=== PATIENT | female | born 1965 | race Caucasian/White ===

== ENCOUNTER 2018-03-12 15:35 | Outpatient (CLI) | payer BC | END 2018-03-12 15:36 | disposition home or self-care (01) | LOC: BICMAMMO 15:35 | PROVIDERS: ATTEND Internal Medicine | DX: Z12.31 Encounter for screening mammogram for malignant neoplasm of breast (principal); R92.1 Mammographic calcification found on diagnostic imaging of breast | CPT/HCPCS: 77063; 77067 ==

== ENCOUNTER 2018-03-25 13:34 | Outpatient (CLI) | payer BC | END 2018-03-25 13:35 | disposition home or self-care (01) | LOC: BICMAMMO 13:34 | PROVIDERS: ATTEND Internal Medicine | DX: Z13.820 Encounter for screening for osteoporosis (principal); Z78.0 Asymptomatic menopausal state; M19.90 Unspecified osteoarthritis, unspecified site | CPT/HCPCS: 77080 ==

== ENCOUNTER 2018-04-06 16:48 | Outpatient (CLI) | payer BC | END 2018-04-06 16:49 | disposition home or self-care (01) | LOC: BICRAD 16:48 | PROVIDERS: ATTEND Internal Medicine | DX: S99.921A Unspecified injury of right foot, initial encounter (principal); S92.511A Displaced fracture of proximal phalanx of right lesser toe(s), initial encounter for closed fracture ==

== ENCOUNTER 2018-05-20 07:33 | Outpatient (CLI) | payer BC | END 2018-05-20 07:34 | disposition home or self-care (01) | LOC: BICULT 07:33 | PROVIDERS: ATTEND Internal Medicine Hematology & Oncology | DX: E83.110 Hereditary hemochromatosis (principal); R16.0 Hepatomegaly, not elsewhere classified; N13.30 Unspecified hydronephrosis; K76.89 Other specified diseases of liver | CPT/HCPCS: 76700 ==

== ENCOUNTER 2018-07-04 11:57 | Emergency (ER) | payer BC ==
[2018-07-04 12:26] LABS: #Basophils 0.1 thou/uL (0.0-0.2); #Eosinphils 0.4 thou/uL (0.0-0.7); #Lymphocytes 1.4 thou/uL (1.20-3.40); #Monocytes 0.7 thou/uL (0.11-0.59); %Basophils 1.7 % (0.0-1.0); %Eosinophils 5.6 % (0.0-10.0); %Lymphocytes 18.7 % (21.0-51.0); %Monocytes 8.5 % (0.0-10.0); %Neutrophils 65.5 % (42.0-75.0); Hemoglobin 13.6 g/dL (12.0-16.0); Mean Corpuscular HGB CONC 33.9 g/dL (32.0-36.0); Mean Corpuscular Hemoglobin 31.1 pg (27.0-31.0); Mean Corpuscular Volume 91.6 fL (78.0-98.0); Mean Platelet Volume 7.8 fL (7.4-10.4); Platelet Count 254 thou/uL (130-400); RBC Distribution Width 11.4 % (11.5-14.5); Red Blood Cell (RBC) Count 4.39 mill/uL (4.20-5.40); White Blood Cell (WBC) Count 7.7 thou/uL (4.8-10.8)
[2018-07-04 12:46] LABS: ALT (SGPT) 15 U/L (8-55); AST (SGOT) 26 U/L (5-34); Albumin 4.5 g/dL (3.5-5.0); Alkaline Phosphatase 48 U/L (40-150); Anion Gap 14 mmol/L (10-20); BUN (Urea Nitrogen) 14 mg/dL (9.8-20.1); Bilirubin, Total 0.3 mg/dL (0.2-1.2); CK (CPK) 188 U/L (29-168); Calc. Creatinine Clearance 0 mL/min (70-130); Calcium 9.6 mg/dL (7.8-10.44); Carbon Dioxide 23 mmol/L (22-29); Chloride 105 mmol/L (98-107); Estimated GFR-MDRD 69; Globulin 3.1 g/dL (2.4-3.5); Glucose 87 mg/dL (70-105); Potassium 4.2 mmol/L (3.5-5.1); Protein, Total 7.6 g/dL (6.0-8.3); Sodium 138 mmol/L (136-145)
[2018-07-04 12:50] LABS: CKMB 2.2 ng/mL (0-6.6); Troponin I Less than 0.010 ng/mL (< 0.028)
== END 2018-07-04 13:00 | disposition home or self-care (01) ==
LOC: ERS 11:57
DX: R07.9 Chest pain, unspecified (principal); J45.909 Unspecified asthma, uncomplicated; I49.3 Ventricular premature depolarization; Z79.899 Other long term (current) drug therapy
CPT/HCPCS: 80053; 82553; 84484; 85025; 85379; 93005

== ENCOUNTER 2018-07-09 12:28 | Outpatient (CLI) | payer BC ==
--- NOTE | 2018-07-09 15:45 | NM ---
DIURETIC RADIONUCLIDE RENOGRAM: 07/09/18 HISTORY: Unspecified hydronephrosis. RADIOPHARMACEUTICAL: 7.8 millicuries technetium 99m-MAG3 injected intravenously. DIURETIC: 25.6 millicuries IV Lasix administered 5 minutes prior to the radiopharmaceutical. FINDINGS: There is good symmetric blood flow to the kidneys with normal tracer uptake and excretion on both deb es. The renogram curves are downsloping bilaterally. The differential function measures 47% on the ri ght and 53% on the left. The excretion halftime measures 6.5 minutes on the right and 5 minutes on th e left. The exam was performed with the Ayala catheter in place. There is tracer material in the ureters and the urinary bladder. IMPRESSION: No evidence of high grade obstruction. POS: C
== END 2018-07-09 12:29 | disposition home or self-care (01) ==
LOC: NM 12:28
PROVIDERS: ATTEND Urology
DX: N13.30 Unspecified hydronephrosis (principal)
CPT/HCPCS: 78708; A4641; A9562

== ENCOUNTER 2018-11-25 14:21 | Outpatient (CLI) | payer BC ==
--- NOTE | 2018-11-25 16:06 | ULT ---
RIGHT BREAST ULTRASOUND: Date: 11/25/18 HISTORY: Right breast pain. FINDINGS: Sonographic evaluation of the region of pain in the 7, 8, and 9 o'clock positions demonstrates no abn ormality. Correlation is made with the mammogram from same date. IMPRESSION: BIRADS Category 2 - Benign findings. Return to annual mammographic screening. POS: OFF
== END 2018-11-25 14:22 | disposition home or self-care (01) ==
LOC: BICMAMMO 14:21
PROVIDERS: ATTEND Internal Medicine
DX: N64.4 Mastodynia (principal)
CPT/HCPCS: G0279

== ENCOUNTER 2019-03-15 11:33 | Outpatient (CLI) | payer BC ==
--- NOTE | 2019-03-15 13:10 | MMO ---
Bilateral MAMMO Bilat Screen [facility]. CLINICAL HISTORY: Patient is 53 years old and is seen for screening. The patient has no family history of breast cancer. The patient has no personal history of cancer. VIEWS: The views performed were: bilateral craniocaudal with tomosynthesis and bilateral mediolateral oblique with tomosynthesis. FILMS COMPARED: The present examination has been compared to [place] [facility] [place] 12/[place], 03/12/2018 and 11/25/2018. MAMMOGRAM FINDINGS: The breasts are extremely dense, which may lower the sensitivity of mammography. There are stable benign appearing calcifications seen in both breasts. There are no suspicious masses, suspicious calcifications, or new areas of architectural distortion. IMPRESSION: THERE IS NO MAMMOGRAPHIC EVIDENCE OF MALIGNANCY. A ROUTINE FOLLOW-UP MAMMOGRAM IN 1 YEAR IS RECOMMENDED. THE RESULTS OF THIS EXAM WERE SENT TO THE PATIENT. ACR BI-RADS Category 2 - Benign finding MAMMOGRAPHY NOTE: 1. A negative mammogram report should not delay a biopsy if a dominant of clinically suspicious mass is present. 2. Approximately 10% to 15% of breast cancers are not detected by mammography. 3. Adenosis and dense breasts may obscure an underlying neoplasm.
== END 2019-03-15 11:34 | disposition home or self-care (01) ==
LOC: BICMAMMO 11:33
PROVIDERS: ATTEND Internal Medicine
DX: Z12.31 Encounter for screening mammogram for malignant neoplasm of breast (principal)
CPT/HCPCS: 77063; 77067

== ENCOUNTER 2019-12-19 12:35 | Outpatient (CLI) | payer BC ==
--- NOTE | 2019-12-19 13:14 | RAD ---
EXAM: Sinus series HISTORY: Congestion COMPARISON: None FINDINGS: No displaced calvarial fracture is seen. The visualized paranasal sinuses are well aerate d without opacification. IMPRESSION: No significant sinus abnormality.
--- NOTE | 2019-12-19 13:14 | RAD ---
EXAM: Chest 2 views: HISTORY: Bronchitis; flu 2 weeks ago COMPARISON: None. FINDINGS: There is a normal-sized cardiomediastinal silhouette. There is no evidence of consolidation, mass, or pleural effusion. The bones are unremarkable. IMPRESSION: No evidence of acute cardiopulmonary disease
== END 2019-12-19 12:36 | disposition home or self-care (01) ==
LOC: BICRAD 12:35
PROVIDERS: ATTEND Internal Medicine
DX: J40 Bronchitis, not specified as acute or chronic (principal); J32.9 Chronic sinusitis, unspecified
CPT/HCPCS: 70220; 71046; 81003; 87081; 87086; 87430; 87804

== ENCOUNTER 2020-03-29 08:12 | Outpatient (CLI) | payer BC ==
--- NOTE | 2020-03-29 10:37 | MMO ---
Bilateral MAMMO Bilat Screen [facility]. CLINICAL HISTORY: Patient is 54 years old and is seen for screening. The patient has the following family history of breast cancer: mother, malignant (generic). The patient has no personal history of cancer. VIEWS: The views performed were: bilateral craniocaudal with tomosynthesis and bilateral mediolateral oblique with tomosynthesis. FILMS COMPARED: The present examination has been compared to prior imaging studies performed at [facility] on 12/30/2016, 03/12/2018, 11/25/2018 and 03/15/2019. This study has been interpreted with the assistance of computer-aided detection. MAMMOGRAM FINDINGS: The breasts are extremely dense, which may lower the sensitivity of mammography. Benign calcifications are noted bilaterally. There are no suspicious masses, suspicious calcifications, or new areas of architectural distortion. IMPRESSION: THERE IS NO MAMMOGRAPHIC EVIDENCE OF MALIGNANCY. A ROUTINE FOLLOW-UP MAMMOGRAM IN 1 YEAR IS RECOMMENDED. THE RESULTS OF THIS EXAM WERE SENT TO THE PATIENT. ACR BI-RADS Category 2 - Benign finding MAMMOGRAPHY NOTE: 1. A negative mammogram report should not delay a biopsy if a dominant of clinically suspicious mass is present. 2. Approximately 10% to 15% of breast cancers are not detected by mammography. 3. Adenosis and dense breasts may obscure an underlying neoplasm. Reported by: HASEEB BAUTISTA MD Electonically Signed: [id number]
== END 2020-03-29 08:13 | disposition home or self-care (01) ==
LOC: BICMAMMO 08:12
PROVIDERS: ATTEND Internal Medicine
DX: Z12.31 Encounter for screening mammogram for malignant neoplasm of breast (principal); Z80.3 Family history of malignant neoplasm of breast
CPT/HCPCS: 77063; 77067

== ENCOUNTER 2020-07-26 07:41 | Outpatient (CLI) | payer BC ==
--- NOTE | 2020-07-26 09:53 | CT ---
CT OF THE ABDOMEN AND PELVIS WITH IV CONTRAST: Date: 07/26/2020 INDICATION: History of hemochromatosis and left-sided abdominal pain. COMPARISON: Prior CT of the abdomen with and without contrast dated 08/07/2010. FINDINGS: There is a nodular opacity with surrounding ground-glass opacity in the posterior right lower lobe armstrong spicious for a rounded pneumonia. Hepatic cysts are similar appearing. The spleen is normal in size. The pancreas and adrenal glands are normal appearing. Chronic right UPJ obstruction is stable. Left k idney is normal. There is a mild amount of retained stool within the colon. The small bowel is of normal caliber. The appendix is normal. Reproductive structures, bladder, rectum, and perirectal soft tissues appear with in normal limits by CT. There is mild scattered degenerative and osteoarthritic change. IMPRESSION: 1. Dense nodular opacity in the posterior right lower lobe with surrounding ground-glass opacity is suspicious for round pneumonia. Recommend appropriate therapy and follow-up CT imaging in 6-8 weeks t o document resolution, as malingnacy is not totally excluded. 2. Stable hepatic cysts. 3. Chronic mild UPJ obstruction. 4. Mild amount of retained stool within the colon. POS: BH
== END 2020-07-26 07:42 | disposition home or self-care (01) ==
LOC: BICCT 07:41
PROVIDERS: ATTEND Internal Medicine Gastroenterology
DX: R10.84 Generalized abdominal pain (principal); K76.89 Other specified diseases of liver; R91.8 Other nonspecific abnormal finding of lung field; N13.5 Crossing vessel and stricture of ureter without hydronephrosis
CPT/HCPCS: 74177

== ENCOUNTER 2020-08-15 07:47 | Outpatient (CLI) | payer BC ==
--- NOTE | 2020-08-15 10:35 | CT ---
Ct of chest performed with intravenous contrast enhancement: HISTORY: Followup of abnormal opacity within the right base noted on recent CT of the abdomen. COMPARISON: A 07/26/2020 CT abdomen and pelvis. FINDINGS: There is an area of nodular ground-glass opacity measuring 6 mm in size within the left lower lobe ax ial image 63. Unfortunately, the previous CT of the abdomen does not extend to this area. I am not certain whether this is a focus of pneumonitis or a true small pulmonary nodule. It will require fol lowup. The nodular mass-like infiltrate in the right base has essentially resolved with some very minimal re sidual ground-glass opacity. Small mediastinal nodes are not significantly enlarged. No significant hilar adenopathy. No signifi cant axillary adenopathy. Hepatic cysts are identified. IMPRESSION: 1. Central complete resolution of the nodular right lower lobe infiltrate. 2. A 6 mm nodular ground-glass opacity within the left lower lobe. This was not seen on the prior e xamination as it is higher in position than the images obtained on the previous study and will requir e followup. It could represent a focus of pneumonitis, but a mass is not excluded as a possibility. I would recommend a short-term 3-month followup noncontrast CT for assessment. POS: [facility]
== END 2020-08-15 07:48 | disposition home or self-care (01) ==
LOC: BICCT 07:47
PROVIDERS: ATTEND Internal Medicine Gastroenterology
DX: R91.8 Other nonspecific abnormal finding of lung field (principal)
CPT/HCPCS: 71260

== ENCOUNTER 2020-12-19 09:50 | Outpatient (CLI) | payer BC ==
--- NOTE | 2020-12-19 11:12 | MMO ---
Left Breast MAMMO Unilat Diag [facility]. CLINICAL HISTORY: Patient is 55 years old and is seen for diagnostic exam and palpable abnormality in the left breast. The patient has the following family history of breast cancer: mother, malignant (generic). The patient has no personal history of cancer. VIEWS: The views performed were: left craniocaudal with tomosynthesis; left mediolateral oblique with tomosynthesis; left mediolateral with tomosynthesis; and left exaggerated craniocaudal with tomosynthesis. FILMS COMPARED: The present examination has been compared to prior imaging studies performed at [facility] on 11/25/2018, 03/15/2019, 03/29/2020 and 12/19/2020. This study has been interpreted with the assistance of computer-aided detection. MAMMOGRAM FINDINGS: The breast is extremely dense, which may lower the sensitivity of mammography. No mammographic or sonograhic abnormality is seen at the site of palpable concern in the 4:00 left breast. There has been interval increase in number of tiny calcs in the left upper slightly inner left breast. IMPRESSION: FINDING IN THE LEFT BREAST IS SUSPICIOUS. NEEDLE LOCALIZATION AND BIOPSY ARE RECOMMENDED. THE RESULTS OF THIS EXAM WERE SENT TO THE PATIENT. ACR BI-RADS Category 4 - Suspicious abnormality - biopsy should be considered D/W pt in person @ [address] Herring over the phone @ 1056 hrs. MAMMOGRAPHY NOTE: 1. A negative mammogram report should not delay a biopsy if a dominant of clinically suspicious mass is present. 2. Approximately 10% to 15% of breast cancers are not detected by mammography. 3. Adenosis and dense breasts may obscure an underlying neoplasm. Reported by: HASEEB BAUTISTA MD Electonically Signed: [id number]
--- NOTE | 2020-12-19 11:20 | ULT ---
LIMITED LEFT BREAST ULTRASOUND: HISTORY: Palpable abnormality at 4 o'clock position of the left breast. FINDINGS: Correlation is made with the mammogram of same date. Sonographic evaluation of the region of palpable concern at the 4 o'clock position of the left breast demonstrates no abnormality. The mammogram demonstrates new tiny calcifications which should be biopsied. IMPRESSION: BIRADS category 4 - suspicious abnormality. Needle localization and biopsy is recommended. Discussed in person with the patient at 10:45 a.m. and over the telephone with Dr. Zeenat Herring at 10:56 a.m. CODE CR POS: OFF
== END 2020-12-19 09:51 | disposition home or self-care (01) ==
LOC: BICMAMMO 09:50
PROVIDERS: ATTEND Internal Medicine
DX: N63.24 Unspecified lump in the left breast, lower inner quadrant (principal)
CPT/HCPCS: G0279

== ENCOUNTER 2021-01-03 13:21 | Outpatient (CLI) | payer BC ==
[2021-01-03 15:11] LABS: #Basophils 0.1 10x3/uL (0.0-0.2); #Eosinphils 0.2 10x3/uL (0.0-0.5); #Monocytes 0.4 10x3/uL (0.0-1.1); #Neutrophils 4.9 10x3/uL (1.5-8.4); %Basophils 1.2 % (0.0-2.0); %Eosinophils 2.6 % (0.0-6.0); %Monocytes 5.6 % (0.0-10.0); %Neutrophils 71.3 % (40.0-75.0); Hemoglobin 13.4 g/dL (12.0-15.5); Mean Corpuscular Hemoglobin 30.7 pg (27.0-33.0); Mean Corpuscular Volume 93.1 fl (81.6-98.3); Mean Platelet Volume 11.2 fl (7.4-10.4); Platelet Count 296 10x3/uL (150-450); RBC Distribution Width 12.7 % (11.5-14.5); Red Blood Cell (RBC) Count 4.36 10x6/uL (3.90-5.03); White Blood Cell (WBC) Count 6.9 10x3/uL (3.5-10.5)
[2021-01-03 15:29] LABS: Anion Gap 13 mmol/L (10-20); BUN (Urea Nitrogen) 14 mg/dL (9.8-20.1); Calc. Creatinine Clearance 0 mL/min (70-130); Calcium 9.8 mg/dL (7.8-10.44); Carbon Dioxide 28 mmol/L (22-29); Chloride 104 mmol/L (98-107); Glucose 93 mg/dL (70-105); Potassium 4.7 mmol/L (3.5-5.1); Sodium 140 mmol/L (136-145)
[2021-01-04 04:32] LABS: SARS-CoV-2 PCR by NAA Not Detected (NotDetected)
== END 2021-01-03 13:22 | disposition home or self-care (01) ==
LOC: LABBT 13:21
PROVIDERS: ATTEND Specialist
DX: Z01.818 Encounter for other preprocedural examination (principal); Z01.812 Encounter for preprocedural laboratory examination; R92.1 Mammographic calcification found on diagnostic imaging of breast; Z20.822 Contact with and (suspected) exposure to COVID-19
CPT/HCPCS: 80048; 85025; 87635; 93005; 93010; U0003; U0005

== ENCOUNTER 2021-01-08 08:37 | Day surgery (SDC) | payer BC ==
[2021-01-07 10:56] VITALS: BMI 17.2
[2021-01-08] MEDS ORDERED: Lidocaine 1% w/Epinephrine 1:100K 20 ML VIAL ONE (09:24)
[2021-01-08] MEDS ORDERED: Bupivacaine 0.25% HCL 30 ML VIAL ONE (09:24)
[2021-01-08] MEDS ORDERED: Acetaminophen 500 MG TAB ONE (09:27)
[2021-01-08] MEDS ORDERED: Ketorolac Tromethamine 30 MG/ML VIAL ONE (09:27)
[2021-01-08] MEDS ORDERED: Fentanyl 100 MCG/2 ML VIAL ONE (09:39)
[2021-01-08] MEDS ORDERED: Rocuronium Bromide 10 MG/ML (10ML VIAL) ONE (10:01)
[2021-01-08] MEDS ORDERED: Glycopyrrolate 0.2 MG/ML 5 ML SYRINGE ONE (10:01)
[2021-01-08] MEDS ORDERED: Ondansetron PF 4 MG/2 ML Vial ONE (10:01)
[2021-01-08] MEDS ORDERED: ePHEDrine 50 MG/ML VIAL ONE (10:01)
[2021-01-08] MEDS ORDERED: PROPOFOL 200 MG/20 ML VIAL ONE (10:01)
[2021-01-08] MEDS ORDERED: PHENYLEPHRINE-NS 100 MCG/ML 10 ML SYRINGE ONE (10:01)
[2021-01-08] MEDS ORDERED: Lidocaine 1% PF 5 ML VIAL ONE (10:01)
== END 2021-01-08 12:53 | disposition home or self-care (01) ==
LOC: SDC 08:37
PROVIDERS: ATTEND Specialist
PROC: BH01ZZZ Plain Radiography of Left Breast (ICD-10-PCS; principal; 2021-01-08)
PROC: 0H9U0ZX Drainage of Left Breast, Open Approach, Diagnostic (ICD-10-PCS; principal; 2021-01-08)
DX: N60.92 Unspecified benign mammary dysplasia of left breast (principal); D24.2 Benign neoplasm of left breast; J45.909 Unspecified asthma, uncomplicated; Z79.899 Other long term (current) drug therapy; Z88.1 Allergy status to other antibiotic agents; Z88.2 Allergy status to sulfonamides; Z88.5 Allergy status to narcotic agent; Z88.8 Allergy status to other drugs, medicaments and biological substances
CPT/HCPCS: 19281; 76098; 88307; J0690; J1885; J2405; J2704; J3010; J3490; S0020

== ENCOUNTER 2021-04-24 09:14 | Outpatient (CLI) | payer BC | END 2021-04-24 09:15 | disposition home or self-care (01) | LOC: BICMAMMO 09:14 | PROVIDERS: ATTEND Internal Medicine | DX: Z12.31 Encounter for screening mammogram for malignant neoplasm of breast (principal); Z80.3 Family history of malignant neoplasm of breast | CPT/HCPCS: 77063; 77067 ==

== ENCOUNTER 2022-05-08 09:10 | Outpatient (CLI) | payer BC | END 2022-05-08 09:11 | disposition home or self-care (01) | LOC: BICMAMMO 09:10 | PROVIDERS: ATTEND Internal Medicine | DX: Z12.31 Encounter for screening mammogram for malignant neoplasm of breast (principal); Z80.3 Family history of malignant neoplasm of breast; Z91.89 Other specified personal risk factors, not elsewhere classified | CPT/HCPCS: 77063; 77067 ==

== ENCOUNTER 2022-06-24 07:43 | Outpatient (CLI) | payer BC | END 2022-06-24 07:44 | disposition home or self-care (01) | LOC: BICULT 07:43 | PROVIDERS: ATTEND Internal Medicine Hematology & Oncology | DX: E83.110 Hereditary hemochromatosis (principal); K76.89 Other specified diseases of liver | CPT/HCPCS: 76700 ==

== ENCOUNTER 2022-09-26 09:42 | Outpatient (CLI) | payer BC | END 2022-09-26 09:43 | disposition home or self-care (01) | LOC: TBSIIMAG 09:42 | PROVIDERS: ATTEND Internal Medicine | DX: M48.02 Spinal stenosis, cervical region (principal); M50.121 Cervical disc disorder at C4-C5 level with radiculopathy; M50.122 Cervical disc disorder at C5-C6 level with radiculopathy; M50.323 Other cervical disc degeneration at C6-C7 level | CPT/HCPCS: 72141 ==

== ENCOUNTER 2022-09-29 14:13 | Outpatient (CLI) | payer BC | END 2022-09-29 14:14 | disposition home or self-care (01) | LOC: TBSIIMAG 14:13 | PROVIDERS: ATTEND Neurological Surgery | DX: M54.2 Cervicalgia (principal); M47.812 Spondylosis without myelopathy or radiculopathy, cervical region; M43.12 Spondylolisthesis, cervical region | CPT/HCPCS: 72050 ==

== ENCOUNTER 2022-11-27 14:15 | Outpatient (CLI) | payer BC | END 2022-11-27 14:16 | disposition home or self-care (01) | LOC: BICMAMMO 14:15 | PROVIDERS: ATTEND Internal Medicine | DX: N63.20 Unspecified lump in the left breast, unspecified quadrant (principal); R92.8 Other abnormal and inconclusive findings on diagnostic imaging of breast; Z80.3 Family history of malignant neoplasm of breast; Z91.89 Other specified personal risk factors, not elsewhere classified | CPT/HCPCS: G0279 ==

== ENCOUNTER → 2022-12-04 | Day surgery (SDC) | payer BC | END | disposition home or self-care (01) | LOC: BICULT 12:23 | PROVIDERS: ATTEND Internal Medicine | DX: N63.20 Unspecified lump in the left breast, unspecified quadrant (principal); Z53.9 Procedure and treatment not carried out, unspecified reason; Z88.1 Allergy status to other antibiotic agents; Z88.2 Allergy status to sulfonamides; Z88.5 Allergy status to narcotic agent; Z88.6 Allergy status to analgesic agent ==

== ENCOUNTER 2022-12-17 15:22 | Outpatient (CLI) | payer BC | END 2022-12-17 15:23 | disposition home or self-care (01) | LOC: BICMAMMO 15:22 | PROVIDERS: ATTEND Internal Medicine | DX: Z13.820 Encounter for screening for osteoporosis (principal); Z78.0 Asymptomatic menopausal state | CPT/HCPCS: 77080 ==

== ENCOUNTER 2022-12-18 10:30 | Day surgery (SDC) | payer BC ==
[2022-12-17 10:24] VITALS: BMI 17.8
[2022-12-18] MEDS ORDERED: Acetaminophen 500 MG TAB ONE (11:15)
[2022-12-18] MEDS ORDERED: Ketorolac Tromethamine 30 MG/ML VIAL ONE (11:15)
[2022-12-18] MEDS ORDERED: ePHEDrine 50 MG/ML VIAL ONE (13:33)
[2022-12-18] MEDS ORDERED: Dexamethasone 20 MG/5 ML VIAL ONE (13:33)
[2022-12-18] MEDS ORDERED: Ondansetron PF 4 MG/2 ML Vial ONE (13:33)
[2022-12-18] MEDS ORDERED: Lidocaine 2% PF 5 ML VIAL ONE (13:55)
[2022-12-18] MEDS ORDERED: Bupivacaine/Epinephrine 0.25% 30 ML VIAL ONE (14:17)
[2022-12-18] MEDS ORDERED: Isosulfan Blue 50 MG/5 ML VIAL ONE (14:18)
[2022-12-18] MEDS ORDERED: Sodium Chloride 0.9% 100 ML ONE (15:01)
[2022-12-18] MEDS ORDERED: CEFAZOLIN 2 GM VIAL ONE (15:01)
[2022-12-18] MEDS ORDERED: Fentanyl 250 MCG/5 ML VIAL ONE (15:10)
[2022-12-18] MEDS ORDERED: fentaNYL PF 100 MCG/2 ML SYRINGE ONE (15:11)
== END 2022-12-18 17:52 | disposition home or self-care (01) ==
LOC: SDC 10:30
PROVIDERS: ATTEND Specialist
PROC: 0HBU0ZZ Excision of Left Breast, Open Approach (ICD-10-PCS; principal; 2022-12-18)
DX: C50.412 Malignant neoplasm of upper-outer quadrant of left female breast (principal); N60.22 Fibroadenosis of left breast; N60.32 Fibrosclerosis of left breast; J45.909 Unspecified asthma, uncomplicated; Z17.0 Estrogen receptor positive status [ER+]; Z79.890 Hormone replacement therapy; Z79.899 Other long term (current) drug therapy; Z88.1 Allergy status to other antibiotic agents; Z88.2 Allergy status to sulfonamides; Z88.5 Allergy status to narcotic agent
CPT/HCPCS: 88307; 88341; 88342; C1713; C1776; J1100; J1885; J2001; J2405; J3010; J3490; Q9968